=== PATIENT | male | born 1995 ===

== ENCOUNTER 2017-06-01 09:40 | Emergency (ER) | payer SELFPAY ==
[2017-06-01 10:48] VITALS: BP 100/68
--- NOTE | 2017-06-01 11:11 | UC ---
Abdominal Pain Male HPI - HPI Summary HPI Summary: Diarrhea for a few days. He has had some vomiting as well but is generally able to hold down fluids. No fever or bleeding. Generally healthy. - History of Current Complaint Chief Complaint: UCGI Stated Complaint: ABDOMINAL PAIN/DIARRHEA Time Seen by Provider: 06/01/17 10:58 Hx Obtained From: Patient Onset/Duration: Gradual Onset, Lasting Days Timing: Constant Severity Initially: Moderate Severity Currently: Moderate Pain Intensity: 6 Location: Other - No pain just some cramping. Character: Aching, Cramping Aggravating Factor(s): Food Alleviating Factor(s): Rest Associated Signs And Symptoms: Positive: Decreased Appetite, Vomiting, Diarrhea. Negative: Fever, Back Pain, Constipation, Blood in Stool, Urinary Symptoms - Allergies/Home Medications Allergies/Adverse Reactions: Allergies Allergy/AdvReac Type Severity Reaction Status Date / Time pollen, dog, cast hair Allergy Wheezing Uncoded 06/01/17 10:34 Home Medications: Home Medications Albuterol HFA INHALER* [Ventolin HFA Inhaler*] 2 puff INH Q4H PRN 06/01/17 [ History Confirmed 06/01/17] Ibuprofen TAB* [Motrin TAB* 800 MG] 800 mg PO ONCE PRN 06/01/17 [History Confirmed 06/01/17] PMH/Surg Hx/FS Hx/Imm Hx Previously Healthy: Yes - Surgical History Surgical History: None - Family History Known Family History: Positive: Other - no related family history. - Social History Alcohol Use: Weekly Alcohol Amount: 5 Substance Use Type: Marijuana Substance Use Comment - Amount & Last Used: yesterday Smoking Status (MU): Heavy Every Day Tobacco Smoker Review of Systems Gastrointestinal: Vomiting, Diarrhea All Other Systems Reviewed And Are Negative: Yes Physical Exam Triage Information Reviewed: Yes Appearance: Well-Appearing, No Pain Distress, Well-Nourished Vital Signs: Initial Vital Signs Temp 99 F 06/01/17 10:38 Pulse 89 06/01/17 10:38 Resp 20 06/01/17 10:38 BP 100/68 06/01/17 10:38 Pulse Ox 99 06/01/17 10:38 Vital Signs Reviewed: Yes Eyes: Positive: Conjunctiva Clear ENT: Positive: Pharynx normal Neck: Positive: Supple, Nontender, No Lymphadenopathy Respiratory: Positive: Normal breath sounds, No respiratory distress, No accessory muscle use. Negative: Respiratory distress, Decreased breath sounds, Accessory muscle use, Crackles, Rhonchi, Stridor Cardiovascular: Positive: No Murmur, Pulses Normal Abdomen Description: Positive: No Organomegaly, Soft. Negative: Distended, Guarding Musculoskeletal: Positive: Strength Intact, ROM Intact, No Edema Neurological: Positive: Alert, Muscle Tone Normal. Negative: Fatigued Psychological: Positive: Age Appropriate Behavior Skin: Negative: rashes Abd Pain Male Course/Dx - Differential Dx/Clinical Impression Provider Diagnoses: enteritis Discharge - Sign-Out/Discharge Documenting (check all that apply): Discharge - Discharge Plan Condition: Good Disposition: HOME Patient Education Materials: Acute Diarrhea (ED) Forms: *Work Release Referrals: Non Staff,Doctor [Primary Care Provider] - - Billing Disposition and Condition Condition: GOOD Disposition: HOME
== END 2017-06-01 11:10 | disposition home or self-care (01) ==
LOC: UCCORT 09:40
DX: K52.9 Noninfective gastroenteritis and colitis, unspecified (principal); F17.200 Nicotine dependence, unspecified, uncomplicated
CPT/HCPCS: 99201; G0463